=== PATIENT | female | born 1985 | race Hispanic/Latino ===

== ENCOUNTER 2022-07-26 23:57 | Emergency (ER) | payer BC ==
[2022-07-27 00:19] LABS: Bilirubin Negative (Negative); Blood, Urine Negative (Negative); Clarity Clear (Clear); Glucose, Urine (Dipstick) Normal (Negative); Ketone, Urine Negative (Negative); Leukocyte Negative Leu/uL (Negative); Nitrite Negative (Negative); Protein, Urine (Dipstick) Negative (Neg-Trace); Urobilinogen Normal mg/dL (Less than 2); pH, Urine 6.5 (5.0-9.0)
[2022-07-27 00:20] LABS: Pregnancy Test - Urine (BHCG) Negative (Negative); Pregu Control Background? CLEAR/WHITE (CLR/WHITE); Pregu Control Bar Appear? YES (CONTROL BAR)
[2022-07-27] MEDS ORDERED: Lidocaine 1% PF 5 ML VIAL ONE (02:00)
[2022-07-27] MEDS ORDERED: HYDROcodone/Acetaminophen 10/325 mg Tablet ONE (02:54)
== END 2022-07-27 03:00 | disposition home or self-care (01) ==
LOC: ERS 23:57
DX: N76.4 Abscess of vulva (principal)
CPT/HCPCS: 10060; 81003; 81025